=== PATIENT | female | born 1945 | race Caucasian/White ===

== ENCOUNTER 2018-03-12 16:49 | Emergency (ER) | payer MEDICARE, OTHER ==
[2018-03-12] MEDS ORDERED: Bacitracin Oint 1 GM U/D Packet TOP ONE (17:18)
[2018-03-12] MEDS ORDERED: Lidocaine 1% with EPINEPHrine 1:100,000 50 ML MDV SUBCUT STA (17:18)
[2018-03-12] MEDS ORDERED: Diphtheria,Pertussis(Acell),Tetanus Vaccine 0.5 ML SDV IM ONE (17:21)
[2018-03-12] MEDS ORDERED: Acetaminophen/HYDROcodone 325-5 MG Tab PO ONE (17:21)
--- NOTE | 2018-03-12 17:24 | EDM.PDOC ---
ED HPI GENERAL MEDICAL PROBLEM - General Chief Complaint: Laceration Stated Complaint: LACERATION ON TOP OF HEAD Time Seen by Provider: 03/12/18 17:05 Source of Information: Reports: Patient, Old Records, RN History Limitations: Reports: No Limitations - History of Present Illness INITIAL COMMENTS - FREE TEXT/NARRATIVE: 72 yo female not on anticoagulation fell on the ice and hit the back of her head. She incurred an occipital scalp laceration. No LOC or nausea. Has a mild NAVARRO that developed 10 min after the fall. 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 (see below) (none) Head Pain Score (Numeric/FACES): 7 - Related Data Allergies Allergy/AdvReac Type Severity Reaction Status Date / Time adhesive Allergy Blisters Verified 03/12/18 17:04 aspirin Allergy Bleeding Verified 03/12/18 17:04 ethylenediamine Allergy Rash Verified 03/12/18 17:08 gold sodium thiomalate Allergy Rash Verified 03/12/18 17:08 hydromorphone [Hydromorphone] Allergy Change Verified 03/12/18 17:04 Mental Status metronidazole Allergy Rash Verified 03/12/18 17:04 morphine Allergy Rash Verified 03/12/18 17:04 NSAIDS (Non-Steroidal Allergy Bleeding Verified 03/12/18 17:04 Anti-Inflamma Home Meds: Home Meds Calcitonin,[place],Synthetic [Calcitonin-[place]] 1 spray TOP DAILY 12/24/13 [ History] Lucy/Cell/Lipas/Malt/Prt/Lac/in [Digestive Enzymes] 1 each PO BID 08/18/14 [ History] Ashwagandha Root Extract [Ashwagandha Extract] 25 gm MC ASDIRECTED 08/18/14 [ History] Cholecalciferol (Vitamin D3) [Vitamin D3] 5,000 unit PO DAILY 08/18/14 [History] Cyanocobalamin (Vitamin B-12) [Cyanocobalamin Injection] 1,000 mcg IJ Q30D 08/18 [History] Hydrocodone/Acetaminophen [Hydrocodon-Acetaminoph 7.5-325] 1 each PO Q6H PRN [History] LORazepam [Ativan] 0.5 mg PO ASDIRECTED 08/18/14 [History] Milk Thistle Seed Extract [Milk Thistle] 280 mg PO DAILY 08/18/14 [History] Multivitamin with Minerals [Multiple Vitamin] 1 tab PO DAILY 08/18/14 [History] Rizatriptan Benzoate [Rizatriptan] 10 mg PO DAILY PRN 08/18/14 [History] Kaela's Wort 300 mg PO DAILY 08/18/14 [History] Past Medical History Gastrointestinal History: Reports: Other (See Below) Other Gastrointestinal History: colitis [employer] History: Reports: Neurological History: Reports: CVA - Past Surgical History GI Surgical History: Reports: Other (See Below) Other GI Surgeries/Procedures: total coloectomy Female Surgical History: Reports: Hysterectomy Social & Family History - Tobacco Use Smoking Status *Q: Never Smoker - Caffeine Use Caffeine Use: Reports: Coffee - Recreational Drug Use Recreational Drug Use: No ED ROS GENERAL - Review of Systems Review Of Systems: See Below Constitutional: Reports: No Symptoms HEENT: Reports: No Symptoms Respiratory: Reports: No Symptoms Cardiovascular: Reports: No Symptoms GI/Abdominal: Reports: No Symptoms. Denies: Nausea, Vomiting : Reports: No Symptoms Musculoskeletal: Reports: No Symptoms Skin: Reports: Wound (occiput laceration) Neurological: Reports: Headache. Denies: Seizure, Syncope, Gait Disturbance Psychiatric: Reports: No Symptoms ED EXAM, SKIN/RASH Exam: See Below Exam Limited By: No Limitations General Appearance: Alert, WD/WN, No Apparent Distress Eye Exam: Bilateral Eye: Normal Inspection, PERRL Ears: Normal External Exam, Normal Canal, Hearing Grossly Normal, Normal TMs Nose: Normal Inspection, Normal Mucosa, No Blood Throat/Mouth: Normal Inspection, Normal Lips, Normal Oropharynx, Normal Voice, No Airway Compromise Head: Atraumatic, Normocephalic Neck: Normal Inspection, Supple, Non-Tender Respiratory/Chest: No Respiratory Distress, Lungs Clear, Normal Breath Sounds, No Accessory Muscle Use Cardiovascular: Regular Rate, Rhythm, No Edema Extremities: Normal Inspection, Normal Range of Motion, Non-Tender, No Pedal Edema Neurological: Alert, Oriented, CN II-XII Intact, Normal Cognition, No Motor/ Sensory Deficits Psychiatric: Normal Affect, Normal Mood Skin: Warm, Dry, Normal Color, No Rash, Wound/Incision Location, Skin: Head (occiput) Characteristics: Linear ED SKIN PROCEDURES - Laceration/Wound Repair Posterior Occipital Head Lac/Wound length In cm: 2.5 Appearance: Subcutaneous, Clean Distal NVT: Neuro & Vascular Intact, No Tendon Injury Anesthetic Type: Local Local Anesthesia - Lidocaine (Xylocaine): 1% with EPI Local Anesthetic Volume: 5cc Skin Prep: Saline Exploration/Debridement/Repair: Wound Explored, No Foreign Material Found Closed with: [place] # of Sutures: 5 Drain Placement: No Sterile Dressing Applied: None Tetanus Status Addressed: Yes Complications: No Course - Vital Signs Last Recorded V/S: Last Vital Signs Temp 36.3 C 03/12/18 17:14 Pulse 77 03/12/18 17:14 Resp 16 03/12/18 17:14 BP 163/93 H 03/12/18 17:14 Pulse Ox 93 L 03/12/18 17:14 - Orders/Labs/Meds Orders: Active Orders 24 hr Category Date Time Status Vaccines to be Administered [RC] PER UNIT ROUTINE Care 03/12/18 17:21 Active Meds: Medications Discontinued Medications Generic Name Dose Route Start Last Admin Trade Name Freq PRN Reason Stop Dose Admin Hydrocodone Bitart/Acetaminophen 1 tab 03/12/18 17:21 03/12/18 17:33 [place] 325-5 Mg PO 03/12/18 17:22 1 tab ONETIME ONE Administration Bacitracin 1 dose 03/12/18 17:18 03/12/18 17:24 Bacitracin Oint 1 Gm TOP 03/12/18 17:19 1 dose ONETIME ONE Administration Diphtheria/Tetanus/Acell Pertussis 0.5 ml 03/12/18 17:21 03/12/18 17:33 Adacel IM 03/12/18 17:22 0.5 ml .ONCE ONE Administration Lidocaine/Epinephrine 5 ml 03/12/18 17:18 03/12/18 17:24 Xylocaine 1% With Epinephrine 1:100,000 SUBCUT 03/12/18 17:19 5 ml NOW STA Administration Departure - Departure Time of Disposition: 17:50 Disposition: Home, Self-Care 01 Condition: Good Clinical Impression: Occipital scalp laceration Qualifiers: Encounter type: initial encounter Qualified Code(s): S01.01XA - Laceration without foreign body of scalp, initial encounter - Discharge Information *PRESCRIPTION DRUG MONITORING PROGRAM REVIEWED*: No *COPY OF PRESCRIPTION DRUG MONITORING REPORT IN PATIENT DELROY: No Instructions: Laceration Care, Adult Referrals: Rakesh Benz MD [Primary Care Provider] - Forms: ED Department Discharge Additional Instructions: Clean wound twice daily with soap and water. Dry. Apply antibiotic ointment. Recheck for signs of infection. [place] out in 8-10 days. You may take acetaminophen and/or ibuprofen as needed for headache. Return also for worsening headache, vomiting more than once, or unusual drowsiness. - My Orders Last 24 Hours: My Active Orders 03/12/18 17:21 Vaccines to be Administered [RC] PER UNIT ROUTINE - Assessment/Plan Last 24 Hours: My Active Orders 03/12/18 17:21 Vaccines to be Administered [RC] PER UNIT ROUTINE
== END 2018-03-12 17:53 | disposition home or self-care (01) ==
LOC: JP.ED 16:49
DX: S01.01XA Laceration without foreign body of scalp, initial encounter (principal); Z23 Encounter for immunization; Z88.5 Allergy status to narcotic agent; Z88.8 Allergy status to other drugs, medicaments and biological substances; Z79.899 Other long term (current) drug therapy; Z86.73 Personal history of transient ischemic attack (TIA), and cerebral infarction without residual deficits; Z91.09 Other allergy status, other than to drugs and biological substances; Z88.6 Allergy status to analgesic agent; W00.0XXA Fall on same level due to ice and snow, initial encounter
CPT/HCPCS: 12001; 90471; 90715; 99283; A9270

== ENCOUNTER 2018-08-29 14:41 | Emergency (ER) | payer MEDICARE, OTHER ==
--- NOTE | 2018-08-29 14:46 | EDM.PDOC ---
ED HPI GENERAL MEDICAL PROBLEM - General Chief Complaint: Neuro Symptoms/Deficits Stated Complaint: POSSIBLE STROKE Time Seen by Provider: 08/29/18 14:41 Source of Information: Reports: Patient History Limitations: Reports: No Limitations - History of Present Illness INITIAL COMMENTS - FREE TEXT/NARRATIVE: 72-year-old female with a history of a stroke more than 30 years ago without deficits, was standing when she felt globally weak. She then developed some right arm weakness and difficulty bearing weight with her right leg so she slumped to the floor. She has a history of chronic recurring TIAs because of blood viscosity problems due to dehydration but just had 2 L of fluid this morning IV, and usually her symptoms are brief but this one has lasted more than a half hour. She has on no anticoagulation. She has no pain, no headache, no visual problems, no speech or facial weakness or deficits. Onset: Sudden Duration: Hour(s): (An hour and a half ago) Location: Reports: Upper Extremity, Right, Lower Extremity, Right Associated Symptoms: Reports: Weakness. Denies: Confusion, Fever/Chills, Headaches, Loss of Appetite, Malaise, Shortness of Breath - Related Data Allergies Allergy/AdvReac Type Severity Reaction Status Date / Time adhesive Allergy Blisters Verified 08/29/18 14:46 aspirin Allergy Bleeding Verified 08/29/18 14:46 ethylenediamine Allergy Rash Verified 08/29/18 14:46 gold sodium thiomalate Allergy Rash Verified 08/29/18 14:46 hydromorphone [Hydromorphone] Allergy Change Verified 08/29/18 14:46 Mental Status metronidazole Allergy Rash Verified 08/29/18 14:46 morphine Allergy Rash Verified 08/29/18 14:46 NSAIDS (Non-Steroidal Allergy Bleeding Verified 08/29/18 14:46 Anti-Inflamma Home Meds: Home Meds Calcitonin,[place],Synthetic [Calcitonin-[place]] 1 spray TOP DAILY 12/24/13 [ History] Lucy/Cell/Lipas/Malt/Prt/Lac/in [Digestive Enzymes] 1 each PO BID 08/18/14 [ History] Ashwagandha Root Extract [Ashwagandha Extract] 25 gm MC ASDIRECTED 08/18/14 [ History] Cholecalciferol (Vitamin D3) [Vitamin D3] 5,000 unit PO DAILY 08/18/14 [History] Cyanocobalamin (Vitamin B-12) [Cyanocobalamin Injection] 1,000 mcg IJ Q30D 08/18 [History] Hydrocodone/Acetaminophen [Hydrocodon-Acetaminoph 7.5-325] 1 each PO Q6H PRN [History] LORazepam [Ativan] 0.5 mg PO ASDIRECTED 08/18/14 [History] Milk Thistle Seed Extract [Milk Thistle] 280 mg PO DAILY 08/18/14 [History] Multivitamin with Minerals [Multiple Vitamin] 1 tab PO DAILY 08/18/14 [History] Rizatriptan Benzoate [Rizatriptan] 10 mg PO DAILY PRN 08/18/14 [History] Kaela's Wort 300 mg PO DAILY 08/18/14 [History] Past Medical History Gastrointestinal History: Reports: Other (See Below) 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 Denies: Abdominal Pain, Nausea, Vomiting Musculoskeletal: Reports: Other (Weakness and lack of coordination of the right arm and right leg) Skin: Reports: No Symptoms ED EXAM, NEURO - Physical Exam Exam: See Below Exam Limited By: No Limitations General Appearance: Alert, No Apparent Distress Eye Exam: Bilateral Eye: EOMI, Normal Inspection, PERRL Throat/Mouth: Normal Inspection Head Exam: Atraumatic Neck: Normal Inspection, Supple Respiratory/Chest: No Respiratory Distress, Lungs Clear Cardiovascular: Regular Rate, Rhythm Neurological: Alert, Normal Mood/Affect, Oriented x 3, Other (Patient is able to lift both legs off the table and hold against gravity, has good plantar and dorsiflexion of the ankles symmetrically. She has apparent lack of proximal muscle coordination however causing inability to bear weight on the left leg. She has similar proximal muscle weakness of the right upper extremity with inability to abduct the arm or externally rotate in place her hand behind her head, but the fingers have coordination and strength.) Extremities: No: Pedal Edema Psychiatric: Normal Affect, Normal Mood Skin Exam: Warm, Dry Course - Vital Signs Last Recorded V/S: Last Vital Signs Temp 98.3 F 08/29/18 14:51 Pulse 86 08/29/18 14:51 Resp BP 136/83 08/29/18 14:51 Pulse Ox 96 08/29/18 14:51 - Orders/Labs/Meds Orders: Active Orders 24 hr Category Date Time Status Saline Lock Insert [OM.PC] Routine Oth 08/29/18 16:08 Ordered Labs: Laboratory Tests 08/29/18 08/29/18 Range/Units 15:20 15:20 WBC 3.4 L (4.5-11.0) K/uL RBC 3.93 (3.30-5.50) M/uL Hgb 12.7 (12.0-15.0) g/dL Hct 39.1 (36.0-48.0) % MCV 100 H (80-98) fL MCH 32 H (27-31) pg MCHC 33 (32-36) % Plt Count 192 (150-400) K/uL Neut % (Auto) 61 (36-66) % Lymph % (Auto) 25 (24-44) % [place] % (Auto) 11 H (2-6) % Eos % (Auto) 4 (2-4) % Baso % (Auto) 0 (0-1) % Sodium 142 (140-148) mmol/L Potassium 3.8 (3.6-5.2) mmol/L Chloride 110 H (100-108) mmol/L Carbon Dioxide 22 (21-32) mmol/L Anion Gap 13.8 (5.0-14.0) mmol/L BUN 21 H (7-18) mg/dL Creatinine 1.0 (0.6-1.0) mg/dL Est Cr Clr Drug Dosing 52.81 mL/min Estimated GFR (MDRD) 55 L (>60) Glucose 84 (74-106) mg/dL Calcium 8.2 L (8.5-10.1) mg/dL Total Bilirubin 0.4 (0.2-1.0) mg/dL AST 19 (15-37) U/L ALT 25 (12-78) U/L Alkaline Phosphatase 58 (46-116) U/L Total Protein 5.9 L (6.4-8.2) g/dL Albumin 2.9 L (3.4-5.0) g/dL Globulin 3.0 (2.3-3.5) g/dL Albumin/Globulin Ratio 1.0 L (1.2-2.2) Meds: Medications Discontinued Medications Generic Name Dose Route Start Last Admin Trade Name [place] PRN Reason Stop Dose Admin Sodium Chloride 10 ml 08/29/18 16:08 Saline Flush FLUSH ASDIRECTED PRN Keep Vein Open - Re-Assessments/Exams Free Text/Narrative Re-Assessment/Exam: 08/29/18 16:[address] was obtained which was normal. Patient's symptoms were not worsening but not improving. CBC and BMP were obtained 08/29/18 16:09 Labs were normal. Phone consultation with neurology recommended transfer for further workup to [facility]. This was arranged. Patient was accepted by Dr. Alonso of neurology at 1545. Departure - Departure Time of Disposition: 16:14 Disposition: DC/Tfer to Other 70 Clinical Impression: Focal neurological deficit present, Weakness of right upper extremity, Weakness of right lower extremity - Discharge Information Referrals: Rakesh Benz MD [Primary Care Provider] - Forms: ED Department Discharge Care Plan Goals: Patient will be urgently transferred to [facility] for neurology stroke evaluation, consultation and treatment. - My Orders Last 24 Hours: My Active Orders 08/29/18 16:08 Saline Lock Insert [OM.PC] Routine - Assessment/Plan Last 24 Hours: My Active Orders 08/29/18 16:08 Saline Lock Insert [OM.PC] Routine
--- NOTE | 2018-08-29 15:34 | CRLCT ---
INDICATION: Right sided weakness TECHNIQUE: CT Head without contrast. COMPARISON: None. FINDINGS: CSF spaces: Within normal limits for age. Brain parenchyma: The escobar-white differentiation is normal. No sign of mass, hemorrhage, or midline shift. Skull base and calvarium: The visualized paranasal sinuses and mastoid air cells are clear. The visualized orbits are grossly unremarkable. No skull fractures. IMPRESSION: Unremarkable noncontrast head CT. No sign of CVA. Please note that all CT scans at this facility use dose modulation, iterative reconstruction, and/or weight-based dosing when appropriate to reduce radiation dose to as low as reasonably achievable. Dictated by: Ean Patel MD @ 08/29/2018 15:31:58 (Electronically Signed)
[2018-08-29] MEDS ORDERED: Sodium Chloride 0.9% 10 ML Syringe FLUSH PRN (16:08)
== END 2018-08-29 16:24 | disposition other institution (70) ==
LOC: JP.ED 14:41
DX: R29.818 Other symptoms and signs involving the nervous system (principal); M62.81 Muscle weakness (generalized); Z88.6 Allergy status to analgesic agent; Z91.09 Other allergy status, other than to drugs and biological substances; Z88.5 Allergy status to narcotic agent; Z88.8 Allergy status to other drugs, medicaments and biological substances; Z86.73 Personal history of transient ischemic attack (TIA), and cerebral infarction without residual deficits; Z90.710 Acquired absence of both cervix and uterus
CPT/HCPCS: 36415; 70450; 80053; 85025; 99285-25

== ENCOUNTER 2022-06-04 09:33 | Emergency (ER) | payer MEDICARE, OTHER | END 2022-06-04 12:54 | disposition home or self-care (01) | LOC: JP.ED 09:33 | DX: M79.605 Pain in left leg (principal); Z88.6 Allergy status to analgesic agent; Z88.8 Allergy status to other drugs, medicaments and biological substances; Z91.048 Other nonmedicinal substance allergy status; Z79.899 Other long term (current) drug therapy; Z90.710 Acquired absence of both cervix and uterus | CPT/HCPCS: 36415; 85379; 93971-26-LT; 93971-LT; 99283; 99284 ==